=== PATIENT | male | born 1955 | race Caucasian/White ===

== ENCOUNTER 2023-02-27 11:27 | Outpatient (CLI) | payer MEDICARE | END 2023-02-27 11:28 | disposition home or self-care (01) | LOC: NAV RAD 11:27 | PROVIDERS: ATTEND Nurse Practitioner Family | DX: R79.81 Abnormal blood-gas level (principal); R91.8 Other nonspecific abnormal finding of lung field | CPT/HCPCS: 71046 ==

== ENCOUNTER 2023-03-31 14:04 | Outpatient (CLI) | payer MEDICARE | END 2023-03-31 14:05 | disposition home or self-care (01) | LOC: NAV RAD 14:04 | PROVIDERS: ATTEND Nurse Practitioner Family | DX: R06.02 Shortness of breath (principal); R05.1 Acute cough | CPT/HCPCS: 71046 ==

== ENCOUNTER 2024-02-26 10:44 | Emergency (ER) | payer MEDICARE ==
[2024-02-26 11:10] LABS: #Basophils 0.1 thou/uL (0.0-0.2); #Eosinophils 0.3 thou/uL (0.0-0.7); #Monocytes 0.9 thou/uL (0.11-0.59); #Neutrophils 6.3 thou/uL (1.40-6.50); %Basophils 0.6 % (0.0-1.0); %Eosinophils 2.8 % (0.0-10.0); %Lymphocytes 28.1 % (21.0-51.0); %Monocytes 8.8 % (0.0-10.0); %Neutrophils 59.7 % (42.0-75.0); Hematocrit 49.2 % (42.0-52.0); Hemoglobin 15.1 g/dL (14.0-18.0); Mean Corpuscular HGB CONC 30.6 g/dL (32.0-36.0); Mean Corpuscular Hemoglobin 26.4 pg (27.0-31.0); Mean Corpuscular Volume 86.1 fl (78.0-98.0); Mean Platelet Volume 7.7 fL (7.4-10.4); Platelet Count 317 10x3/uL (130-400); RBC Distribution Width 17.1 % (11.5-14.5); Red Blood Cell (RBC) Count 5.71 mill/uL (4.70-6.10); White Blood Cell (WBC) Count 10.6 10x3/uL (4.8-10.8)
[2024-02-26 11:27] LABS: ALT (SGPT) 15 U/L (8-55); AST (SGOT) 19 U/L (5-34); Albumin 3.7 g/dL (3.4-4.8); Alkaline Phosphatase 55 U/L (40-110); Anion Gap 17 mmol/L (10-20); BUN (Urea Nitrogen) 18 mg/dL (8.4-25.7); Bilirubin, Total 0.3 mg/dL (0.2-1.2); Calc. Creatinine Clearance 0 mL/min (70-130); Calcium 9.6 mg/dL (7.8-10.44); Carbon Dioxide 19 mmol/L (23-31); Chloride 107 mmol/L (98-107); Estimated GFR 62; Globulin 3.9 g/dL (2.4-3.5); Glucose 144 mg/dL (80-115); Magnesium 1.9 mg/dL (1.6-2.6); Potassium 4.7 mmol/L (3.5-5.1); Protein, Total 7.6 g/dL (5.8-8.1); Sodium 138 mmol/L (136-145)
== END 2024-02-26 11:40 | disposition home or self-care (01) ==
LOC: NAV ERS 10:44
DX: E87.5 Hyperkalemia (principal); E11.9 Type 2 diabetes mellitus without complications; E78.5 Hyperlipidemia, unspecified; K21.9 Gastro-esophageal reflux disease without esophagitis; E03.9 Hypothyroidism, unspecified; Z79.82 Long term (current) use of aspirin; Z79.84 Long term (current) use of oral hypoglycemic drugs; Z79.899 Other long term (current) drug therapy; Z55.6 Problems related to health literacy; Z87.891 Personal history of nicotine dependence
CPT/HCPCS: 80053; 83735; 85025; 93005; 99283